=== PATIENT | female | born 1960 | race Caucasian/White ===

== ENCOUNTER 2024-04-25 05:42 | Day surgery (SDC) | payer BC ==
[2024-04-22 11:34] LABS: BASOPHILS # (AUTO) 0.1 X10'3 (0-0.2); BASOPHILS % (AUTO) 1.2 % (0-1); EOSINOPHILS # (AUTO) 0.1 X10'3 (0-0.9); LYMPHOCYTES # (AUTO) 2.2 X10'3 (1.1-4.8); LYMPHOCYTES % (AUTO) 39.7 % (21-51); MEAN CORPUSCULAR HEMOGLOBIN 29.7 PG (27.0-31.0); MEAN CORPUSCULAR HGB CONC 33.6 g/dL (33.0-36.5); MEAN CORPUSCULAR VOLUME 88.2 FL (78-98); MEAN PLATELET VOLUME 7.5 FL (7.4-10.4); MONOCYTES # (AUTO) 0.4 X10'3 (0-0.9); MONOCYTES % (AUTO) 7.3 % (2-12); NEUTROPHILS # (AUTO) 2.7 X10'3 (1.8-7.7); NEUTROPHILS % (AUTO) 49.8 % (42-75); PRE OP HEMATOCRIT 42.8 % (35.0-45.0); PRE OP HEMOGLOBIN 14.4 g/dL (12.0-16.0); PRE OP PLATELET COUNT 348 X10'3 (140-440); PRE OP WHITE BLOOD COUNT 5.5 10'3 (4.8-10.8); RED BLOOD COUNT 4.85 X10'6 (4.20-5.60); RED CELL DISTRIBUTION WIDTH 13.9 % (11.5-14.5)
[2024-04-22 11:46] LABS: PRE OP INR 1.1 INR; PRE OP PROTIME 11.2 SECONDS (9.0-12.0)
[2024-04-22 11:48] LABS: ALBUMIN 4.1 G/DL (3.4-5.0); ALBUMIN/GLOBULIN RATIO 1.1 (1.1-1.5); ALKALINE PHOSPHATASE 98 IU/L (46-116); BLOOD UREA NITROGEN 15 MG/DL (7-18); CALCIUM 9.9 MG/DL (8.5-10.1); CHLORIDE 104 MMOL/L (99-107); CREATININE 0.94 MG/DL (0.40-0.90); PRE OP ALT 44 U/L (30-65); PRE OP ANION GAP 10 (8-16); PRE OP AST 39 U/L (10-37); PRE OP BILIRUB, TOTAL 0.4 MG/DL (0.0-1.0); PRE OP GLUCOSE 87 MG/DL (70-104); PRE OP SODIUM 140 MMOL/L (135-145); TOTAL CARBON DIOXIDE 25.6 MMOL/L (24-32); TOTAL PROTEIN 7.9 G/DL (6.4-8.2); eGFR 60 ML/MIN
[2024-04-22 13:03] LABS: PRE OP POTASSIUM 3.2 MMOL/L (3.4-5.1)
[2024-04-25] VITALS (26 sets, daily range): BP systolic 102–142; BP diastolic 60–93; PULSE 65–94; RESP 11–19; TEMP 97.3–98.5; O2SAT 93–97
[~2024-04-25] VITALS: Ht 165.1 cm; Wt 111.1 kg
[~2024-04-25 05:42] MED LIST: AMLO5TAB16 PO; ARIP5TAB53 PO; DILT-36 PO; FENO145T26 PO; FLUO40CA PO; HYDR25TA4 PO
[2024-04-25] MEDS: famotidine 20mg tablet PO ONE (06:12)
[2024-04-25] MEDS: ringers solution, lacted 1,000 ML IV SCH ×3 (06:20→11:30)
[2024-04-25] MEDS: ceFAZolin 2gm in dextrose, iso 50 ML IV ONE (06:20)
[2024-04-25] MEDS ORDERED: BUPIVAcaine 2.5mg/ml inj 50ml vial (contains preservative) ONE (06:52)
[2024-04-25] MEDS ORDERED: methylene blue (5mg/ml) 50mg/10ml ampul IV ONE (06:52)
[2024-04-25] MEDS ORDERED: BUPIVACAINE liposomal/PF 13.3 MG/ML vial IM ONE (06:52)
[2024-04-25 07:37] LABS: ISTAT CREATININE 0.9 mg/dL (0.6-1.1); ISTAT HGB 13.3 g/dl (12.0-16.0); ISTAT IONIZED CALCIUM 1.3 mmol/L (1.03-1.32); ISTAT K 3.6 mmol/L (3.5-5.1); POC BUN/CREATININE RATIO 22.2 (6.6-38.0)
[2024-04-25] MEDS ORDERED: sevoflurane 250ml liquid IH ONE (07:39)
[2024-04-25 07:40] LABS: BASOPHILS # (AUTO) 0.1 X10'3 (0-0.2); EOSINOPHILS # (AUTO) 0.1 X10'3 (0-0.9); EOSINOPHILS % (AUTO) 2.9 % (0-6); LYMPHOCYTES # (AUTO) 1.6 X10'3 (1.1-4.8); LYMPHOCYTES % (AUTO) 35.7 % (21-51); MEAN CORPUSCULAR HEMOGLOBIN 30.2 PG (27.0-31.0); MEAN CORPUSCULAR HGB CONC 34.5 g/dL (33.0-36.5); MEAN CORPUSCULAR VOLUME 87.4 FL (78-98); MEAN PLATELET VOLUME 7.8 FL (7.4-10.4); MONOCYTES # (AUTO) 0.4 X10'3 (0-0.9); NEUTROPHILS # (AUTO) 2.2 X10'3 (1.8-7.7); NEUTROPHILS % (AUTO) 50.4 % (42-75); PRE OP HEMATOCRIT 38.2 % (35.0-45.0); PRE OP HEMOGLOBIN 13.2 g/dL (12.0-16.0); PRE OP PLATELET COUNT 349 X10'3 (140-440); PRE OP WHITE BLOOD COUNT 4.4 10'3 (4.8-10.8); RED BLOOD COUNT 4.38 X10'6 (4.20-5.60)
[2024-04-25 07:58] LABS: ALANINE AMINOTRANSFERASE 37 U/L (12-78); ALBUMIN 3.6 G/DL (3.4-5.0); ALBUMIN/GLOBULIN RATIO 1.1 (1.1-1.5); ALKALINE PHOSPHATASE 83 IU/L (46-116); ANION GAP 8 (8-16); ASPARTATE AMINO TRANSFERASE 29 U/L (10-37); BILIRUBIN,TOTAL 0.4 MG/DL (0.1-1.0); BLOOD UREA NITROGEN 20 MG/DL (7-18); BUN/CREATININE RATIO 19.6 (10.0-20.0); CALCIUM 9.5 MG/DL (8.5-10.1); CHLORIDE 107 MMOL/L (99-107); CREATININE 1.02 MG/DL (0.40-0.90); GLUCOSE 93 MG/DL (70-104); POTASSIUM 3.6 MMOL/L (3.5-5.1); SODIUM 143 MMOL/L (135-145); TOTAL CARBON DIOXIDE 28.3 MMOL/L (24-32); eCRCL 49 ML/MIN; eGFR 54 ML/MIN
[2024-04-25] MEDS ORDERED: fentaNYL/PF 50MCG/1 ML 2ML syringe ONE ×2 (08:36→09:25)
[2024-04-25] MEDS: methylene blue (5mg/ml) 50mg/10ml ampul IV ONE (09:01)
[2024-04-25] MEDS ORDERED: ROPIVAcaine 0.5% (5mg/ml) 30ml vial ONE ×2 (09:07)
[2024-04-25] MEDS ORDERED: propofol inj 20 ML IV ONE (09:07)
[2024-04-25] MEDS ORDERED: hydrALAZINE 20mg/ml inj. ONE (09:07)
[2024-04-25] MEDS ORDERED: LIDOcaine 1%/PF 5ML 10 MG/ML VIAL ONE (09:08)
[2024-04-25] MEDS ORDERED: ondansetron/PF 4mg/2ml inj ONE (10:08)
[2024-04-25] MEDS ORDERED: ondansetron/PF 4mg/2ml inj IV PRN (10:15)
[2024-04-25] MEDS ORDERED: proCHLORperazine 10 MG/2 ml inj IV PRN (10:15)
[2024-04-25] MEDS ORDERED: HYDROmorphone/PF 0.2 MG/ML SYRINGE IV PRN (10:15)
[2024-04-25] MEDS ORDERED: meperidine/PF 25mg/ml syringe IV PRN (10:15)
[2024-04-25] MEDS ORDERED: hydrALAZINE 20mg/ml inj. IV PRN (10:15)
[2024-04-25] MEDS ORDERED: labetalol 20mg/4ml (5mg/ml) syringe IV PRN (10:15)
[2024-04-25] MEDS: BUPIVAcaine 2.5mg/ml inj 50ml vial (contains preservative) SQ ONE (10:54)
[2024-04-25] MEDS ORDERED: HYDROcodone/acetaminophen 5mg/325mg tablet PO PRN ×2 (11:30)
[2024-04-25] MEDS ORDERED: morphine 2 MG/ML inj. syringe IV PRN (11:50)
[2024-04-25] MEDS: fentaNYL/PF 50MCG/1 ML 2ML syringe IV PRN (12:13)
[2024-04-25] MEDS: acetaminophen 1,000mg/100ml IV 100 ML IV ONE (12:27)
[2024-04-25] MEDS: ceFAZolin 2gm in dextrose, iso 50 ML IV SCH (16:49)
[2024-04-26 02:00] VITALS: BP 135/62; PULSE 78; RESP 16; TEMP 97.7; O2SAT 93
[2024-04-26 04:31] LABS: BASOPHILS # (AUTO) 0.1 X10'3 (0-0.2); BASOPHILS % (AUTO) 0.7 % (0-1); EOSINOPHILS % (AUTO) 0.5 % (0-6); HEMATOCRIT 34.4 % (35.0-45.0); HEMOGLOBIN 11.8 g/dl (12.0-16.0); LYMPHOCYTES # (AUTO) 1.6 X10'3 (1.1-4.8); LYMPHOCYTES % (AUTO) 21.3 % (21-51); MEAN CORPUSCULAR HEMOGLOBIN 30.3 PG (27.0-31.0); MEAN CORPUSCULAR HGB CONC 34.3 g/dL (33.0-36.5); MEAN CORPUSCULAR VOLUME 88.5 FL (78-98); MEAN PLATELET VOLUME 7.8 FL (7.4-10.4); MONOCYTES # (AUTO) 0.7 X10'3 (0-0.9); MONOCYTES % (AUTO) 8.6 % (2-12); NEUTROPHILS # (AUTO) 5.2 X10'3 (1.8-7.7); NEUTROPHILS % (AUTO) 68.9 % (42-75); PLATELET COUNT 298 X10'3 (140-440); RED BLOOD COUNT 3.89 X10'6 (4.20-5.60); RED CELL DISTRIBUTION WIDTH 14.2 % (11.5-14.5); WHITE BLOOD COUNT 7.6 X10'3 (4.5-11.0)
[2024-04-26 06:00] VITALS: BP 138/66; PULSE 72; RESP 14; TEMP 98.3; O2SAT 97
== END 2024-04-26 12:30 | disposition home or self-care (01) ==
LOC: PAS 05:42 → UNDOADMOB 11:50 → SUR 3N 11:50 → PAS 04-26 12:30
PROVIDERS: ATTEND Surgery
DX: C50.412 Malignant neoplasm of upper-outer quadrant of left female breast (principal); L57.0 Actinic keratosis; D64.9 Anemia, unspecified; Z79.899 Other long term (current) drug therapy; Z79.01 Long term (current) use of anticoagulants; Z90.710 Acquired absence of both cervix and uterus; Z87.891 Personal history of nicotine dependence; Z85.820 Personal history of malignant melanoma of skin; F32.A Depression, unspecified; Z88.2 Allergy status to sulfonamides; Z88.8 Allergy status to other drugs, medicaments and biological substances; E66.9 Obesity, unspecified; Z68.41 Body mass index [BMI] 40.0-44.9, adult
CPT/HCPCS: 19303; 36415; 38525; 38900; 80047; 80053; 82948; 85025; 85610; 85730; 87081; 93005; A6258; J0131; J0360; J0690; J2405; J2704; J2795; J3010; J3490; J7030; J7120; Q9968; Z7506; Z7508; Z7512; A4215; A4615; A4618; A6253; A6449; A7000; C9250; C9290; G0378